=== PATIENT | female | born 1975 | race Caucasian/White ===

== ENCOUNTER 2018-04-03 14:19 | Emergency (ER) | payer OTHER ==
[~2018-04-03] VITALS: Ht 160 cm; Wt 72.0 kg
[2018-04-03 14:21] VITALS: BP 157/88; PULSE 92; RESP 16; TEMP 98.2; O2SAT 96
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
[2018-04-03] MEDS ORDERED: ERYTHROMYCIN 0.5% OPTH OINT 3.5 GM TUBO EACH EYE ONE (15:15)
[2018-04-03] MEDS ORDERED: ERYTHROMYCIN 0.5% OPTH OINT 3.5 GM TUBO LEFT EYE SCH (18:00)
== END 2018-04-03 16:02 | disposition home or self-care (01) ==
LOC: PHEFT 14:19
DX: S05.02XA Injury of conjunctiva and corneal abrasion without foreign body, left eye, initial encounter (principal); W22.8XXA Striking against or struck by other objects, initial encounter; Y93.I9 Activity, other involving external motion
CPT/HCPCS: 99283